=== PATIENT | male | born 1935 | race Caucasian/White ===

== ENCOUNTER 2016-06-08 06:53 | Inpatient (IN) | payer MEDICARE, OTHER ==
[2016-06-08 07:22] LABS: VENOUS BLOOD BASE EXCESS -2.1 mmol/L; VENOUS BLOOD HCO3 24.4 mmol/L (20-32); VENOUS BLOOD PCO2 48.8 mmHg (35-63); VENOUS BLOOD PH 7.32 (7.30-7.42)
[2016-06-08 07:29] LABS: HEMATOCRIT 37.5 % (37.9-51.0); HEMOGLOBIN 12.4 g/dL (13.5-17.0); HGB HCT DIFFERENCE -0.3; MEAN CORPUSCULAR HEMOGLOBIN 29.3 pg (27.0-33.4); MEAN CORPUSCULAR HGB CONC 33.1 g/dL (32.0-36.0); MEAN CORPUSCULAR VOLUME 89 fl (80-97); RED BLOOD COUNT 4.23 10^6/uL (4.35-5.55); RED CELL DISTRIBUTION WIDTH 14.4 % (11.5-14.0); WHITE BLOOD COUNT 15.6 10^3/uL (4.0-10.5)
[2016-06-08] MEDS: NORMAL SALINE 1000 ML 1,000 ML IV PRN ×4 (07:32→20:10)
[2016-06-08 07:44] LABS: ALANINE AMINOTRANSFERASE 32 U/L (21-72); ALBUMIN 3.2 g/dL (3.5-5.0); ALKALINE PHOSPHATASE 123 U/L (38-126); ANION GAP 12 (5-19); ASPARTATE AMINO TRANSFERASE 43 U/L (17-59); BILIRUBIN,TOTAL 0.9 mg/dL (0.2-1.3); BLOOD UREA NITROGEN 39 mg/dL (7-20); CALCIUM 8.6 mg/dL (8.4-10.2); CARBON DIOXIDE 29 mmol/L (22-30); CHLORIDE 102 mmol/L (98-107); CREATININE RESULT 1.12 mg/dL (0.52-1.25); GLUCOSE 142 mg/dL (75-110); MAGNESIUM 1.8 mg/dL (1.6-2.3); POTASSIUM 3.6 mmol/L (3.6-5.0); SODIUM 142.7 mmol/L (137-145); TOTAL PROTEIN 6.6 g/dL (6.3-8.2)
[2016-06-08] MEDS ORDERED: LEVOFLOXACIN 500 MG/D5W RTU 100 ML IV ONE (07:45)
[2016-06-08 07:48] LABS: BAND NEUTROPHILS % (MANUAL) 4 % (3-5); BASOPHILS % (MANUAL) 0 % (0-2); EOSINOPHILS % (MANUAL) 2 % (0-6); LYMPHOCYTES % (MANUAL) 2 % (13-45); TOTAL CELLS COUNTED 100
[2016-06-08 07:49] LABS: RBC MORPHOLOGY COMMENT NORMO-CYTIC/CHROMIC; TOXIC GRANULATION SLIGHT
[2016-06-08 07:50] LABS: PARTIAL THROMBOPLASTIN TIME 33.4 SEC (23.5-35.8); PROTHROMBIN TIME 14.9 SEC (11.4-15.4)
[2016-06-08 08:01] LABS: APPEARANCE,URINE HAZY; BILIRUBIN,URINE NEGATIVE (NEGATIVE); GLUCOSE, URINE NEGATIVE (NEGATIVE); KETONES,URINE NEGATIVE (NEGATIVE); LEUKOCYTE ESTERASE,URINE NEGATIVE (NEGATIVE); NITRITE,URINE NEGATIVE (NEGATIVE); PROTEIN,URINE 30 mg/dL (NEGATIVE); UROBILINOGEN,URINE NEGATIVE mg/dL (<2.0)
[2016-06-08 08:02] LABS: URINE SPECIFIC GRAVITY 1.017
--- NOTE | 2016-06-08 08:47 | ER Document Report ---
ED General - General Chief Complaint: Breathing Difficulty Stated Complaint: DIFFICULTY BREATHING - Related Data Allergies/Adverse Reactions: No Known Allergies Allergy (Unverified 06/08/16 07:34) Physical Exam - Vital signs Vitals: Resp Pulse Ox 27 H 97 06/08/16 06:59 06/08/16 06:59 Course - Vital Signs Vital signs: Temp Pulse Resp BP Pulse Ox 33 H 92/58 L 96 06/08/16 07:30 06/08/16 07:30 06/08/16 07:30 - Laboratory Result Diagrams: 06/08/16 06:59 06/08/16 06:59 Laboratory results interpreted by me: 06/08/16 06/08/16 06/08/16 06:59 06:59 07:13 WBC 15.6 H RBC 4.23 L Hgb 12.4 L Hct 37.5 L RDW 14.4 H Plt Count 136 L Seg Neuts % (Manual) 82 H Lymphocytes % (Manual) 2 L Abs Neuts (Manual) 13.4 H Abs Lymphs (Manual) 0.3 L Abs Monocytes (Manual) 1.6 H BUN 39 H Glucose 142 H Albumin 3.2 L Urine Protein 30 H Urine Ascorbic Acid 40 H
[2016-06-08] MEDS ORDERED: NORMAL SALINE 1000 ML 1,000 ML IV ONE (08:52)
--- NOTE | 2016-06-08 08:53 | ER Document Report ---
ED General - General Chief Complaint: Breathing Difficulty Stated Complaint: DIFFICULTY BREATHING - HPI Patient complains to provider of: fever respiratory distress Notes: Patient coming in via EMS after found to have fever and restarted stress. Patient was found to have a oxygen desaturation a proximal 70 upon their arrival. Patient was transitioned to a nonrebreather transported. Upon EMS arrival patient GCS of 13 however most of the initial history of present illness is obtained by EMS. Patient has had cough the last 4 days she recently moved to the area from [place] in February. Has a history of COPD/emphysema. Patient did have fever was given Tylenol. Patient was transitioned from nonrebreather to BiPAP. - Related Data Allergies/Adverse Reactions: No Known Allergies Allergy (Unverified 06/08/16 07:34) Home Medications: Current Home Medications Atorvastatin Calcium [Lipitor 40 mg Tablet] 40 mg PO QHS 06/08/16 [History] Budesonide [Uceris] 9 mg PO DAILY 06/08/16 [History] Clonazepam [Klonopin] 0.5 mg PO Q8 06/08/16 [History] Diphenoxylate HCl/Atropine [Diphenoxylate-Atrop 2.5-0.025] 1 each PO QIDP PRN [History] Ergocalciferol (Vitamin D2) [Vitamin D2] 50,000 unit PO [id number] 06/08/16 [ History] Oxycodone HCl/Acetaminophen [Oxycodone-Acetaminophen 5-325] 1 each PO Q6 [History] Past Medical History - Social History Smoking Status: Unknown if Ever Smoked Family History: Reviewed & Not Pertinent Review of Systems - Review of Systems Constitutional: No symptoms reported EENT: No symptoms reported Cardiovascular: No symptoms reported Respiratory: Short of breath Gastrointestinal: No symptoms reported Genitourinary: No symptoms reported Male Genitourinary: No symptoms reported Musculoskeletal: No symptoms reported Skin: No symptoms reported Hematologic/Lymphatic: No symptoms reported Neurological/Psychological: No symptoms reported -: Yes All other systems reviewed and negative Physical Exam - Vital signs Vitals: Resp Pulse Ox 27 H 97 06/08/16 06:59 06/08/16 06:59 Interpretation: Hypotensive, Tachycardic, Febrile - General General appearance: Alert, Other - Cachectic In distress: Moderate - HEENT Head: Normocephalic, Atraumatic Eyes: Normal Pupils: PERRL - Respiratory Respiratory status: Respiratory distress Chest status: Nontender Breath sounds: Rhonchi, Wheezing Chest palpation: Normal - Cardiovascular Rhythm: Regular, Tachycardia Heart sounds: Normal auscultation Murmur: No - Abdominal Inspection: Normal Distension: No distension Bowel sounds: Normal Tenderness: Nontender Organomegaly: No organomegaly - Back Back: Normal, Nontender - Extremities General upper extremity: Normal inspection, Nontender, Normal color, Normal ROM , Normal temperature General lower extremity: Normal inspection, Nontender, Normal color, Normal ROM , Normal temperature, Normal weight bearing. No: Enzo's sign - Neurological Neuro grossly intact: Yes Cognition: Normal Orientation: AAOx4 Jackson Coma Scale Eye Opening: To Voice Antonio Coma Scale Verbal: Oriented Jackson Coma Scale Motor: Localizes to Pain Jackson Coma Scale Total: 13 Speech: Normal Motor strength normal: LUE, RUE, LLE, RLE Sensory: Normal - Psychological Associated symptoms: Normal affect, Normal mood - Skin Skin Temperature: Warm Skin Moisture: Dry Skin Color: Normal Course - Re-evaluation Re-evalutation: 06/08/16 15:10 After timeout BiPAP patient's mentation improved family at bedside patient has a history emphysema otherwise no other information was gathered. Patient was given IV fluids started on Levaquin. Patient's chest x-ray showed mild a slurred pneumonia. Patient's case was referred to the hospitalist. Patient did surgeon improve our during his stay here in ER waiting for a bed assignment did become hypotensive again did place a central line in to aid in the patient' s care with hospitalist. Otherwise patient admitted to the ICU - Vital Signs Vital signs: Temp Pulse Resp BP Pulse Ox 101 F H 25 H 82/59 L 96 06/08/16 10:05 06/08/16 14:30 06/08/16 14:30 06/08/16 14:29 - Laboratory Result Diagrams: 06/08/16 06:59 06/08/16 06:59 Laboratory results interpreted by me: 06/08/16 06/08/16 06/08/16 06:59 06:59 06:59 WBC 15.6 H RBC 4.23 L Hgb 12.4 L Hct 37.5 L RDW 14.4 H Plt Count 136 L Seg Neuts % (Manual) 82 H Lymphocytes % (Manual) 2 L Abs Neuts (Manual) 13.4 H Abs Lymphs (Manual) 0.3 L Abs Monocytes (Manual) 1.6 H BUN 39 H Glucose 142 H NT-Pro-B Natriuret Pep 728 H Albumin 3.2 L Urine Protein Urine Ascorbic Acid 06/08/16 07:13 WBC RBC Hgb Hct RDW Plt Count Seg Neuts % (Manual) Lymphocytes % (Manual) Abs Neuts (Manual) Abs Lymphs (Manual) Abs Monocytes (Manual) BUN Glucose NT-Pro-B Natriuret Pep Albumin Urine Protein 30 H Urine Ascorbic Acid 40 H Procedures - Central Line Right Internal jugular Consent obtained: Yes Central line pre-insertion: Sterile PPE donned, Chloraprep applied, Sterile drapes applied Central line lumen type: Triple Anesthetic type: 1% Lidocaine mL's of anesthesia: 3 Ultrasound guided: Yes CM at insertion site: 20 Line secured with sutures: Yes Central line post-insertion: Blood return from lumens, Biopatch applied, Sutured , Sterile dressing applied, Position confirmed w/ CXR Number of attempts: 1 Complications: No Critical Care Note - Critical Care Note Total time excluding time spent on procedures (mins): 40 Comments: Multiple evaluation from stable vital signs patient with sepsis requiring BiPAP Discharge - Discharge Clinical Impression: Tobacco dependence, Lung nodule, solitary, Acute respiratory failure with hypoxia Sepsis Qualifiers: Sepsis type: sepsis due to unspecified organism Qualified Code(s): A41.9 - Sepsis, unspecified organism Pneumonia Qualifiers: Pneumonia type: due to unspecified organism Laterality: bilateral Lung location : lower lobe of lung Qualified Code(s): J18.9 - Pneumonia, unspecified organism COPD (chronic obstructive pulmonary disease) Qualifiers: COPD type: COPD with acute exacerbation Qualified Code(s): J44.1 - Chronic obstructive pulmonary disease with (acute) exacerbation Condition: Fair Disposition: ADMITTED INPATIENT Admitting Provider: [facility] Unit Admitted: ICU
[2016-06-08] MEDS ORDERED: IPRATROPIUM/ALBUTEROL 0.5-2.5 MG/3 ML AMPUL NEB PRN (09:29)
--- NOTE | 2016-06-08 10:09 | PDOC H&P ---
History of Present Illness Admission Date/PCP: CASEY AGUILAR MD Patient complains of: Shortness of breath and weakness History of Present Illness: VIKRAM BARRIENTOS is a 80 year old male who is new to the area having moved from [place] and yet to establish with primary care provider, carries a history of COPD and lung nodule, presents to the emergency department from home with a 5 day history of progressive shortness of breath. He states it started on Thursday with cough resulting in left lower and abdominal wall chest pain described as sharp, stabbing, intermittent and worsened with paroxysms of cough , radiating into the shoulders and down his right arm exacerbating his cervical spine disease, without alleviating factors, and no associated symptoms of palpitations, orthopnea, PND, syncope or presyncope. He also complains of generalized weakness, generalized myalgias, generalized arthralgias, fevers at home with associated diaphoresis and night sweats, chills/rigors. He denies nausea, vomiting, diarrhea, sick contacts, recent travel, exposure to TB, recent hospitalization. He reports a long history of smoking at least a pack per day for most of his life and a diagnosis of COPD with home nebulizers but he is not O2 or steroid dependent yet. 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 He is unsure of a pulmonary fibrosis diagnosis. He also carries a history of a 2-1/2 cm left upper lobe lung nodule for the last 20 years status monitored with annual imaging and has not changed during that time. He carries a diagnosis of colon cancer status post excision with end-to-end anastomosis, no ostomy, status post chemotherapy and radiation therapy, last colonoscopy in 2007 and he was declared cancer free. Evaluation in the emergency department shows a bibasilar pneumonia, leukocytosis , temperature documented at 102 with a room air sat of 70% now on BiPAP therapy and we were asked to admit the patient for further evaluation and management. He states he is up-to-date with his pneumonia and influenza vaccine, and he screened negative for influenza in the ER. Past Medical History Cardiac Medical History: Reports: None Pulmonary Medical History: Reports: Chronic Obstructive Pulmonary Disease (COPD ) - He has been hospitalized for pneumonia in the past but never required intub Neurological Medical History: Reports: None Endocrine Medical History: Reports: None Malignancy Medical History: Reports: Colorectal Cancer GI Medical History: Reports: None Hematology: Reports: None Infectious Medical History: Denies: Clostridium Difficile, Methicillin-Resistant Staph Aureus, Vancomycin -Resistant Enterococci Past Surgical History Past Surgical History: Reports: Orthopedic Surgery - Multiple orthopedic surgeries including repair of a fractured right arm,, Other - Partial colectomy with end-to-end anastomosis; also C-spine fusion Social History Information Source: Patient Lives with: Family Smoking Status: Current Every Day Smoker Cigarettes Packs Per Day: 1 Frequency of Alcohol Use: Rare Hx Recreational Drug Use: No Hx Prescription Drug Abuse: No - Advance Directive Resuscitation Status: Full Code Family History Family History: CAD, CVA Parental Family History Reviewed: Yes Children Family History Reviewed: Yes Sibling(s) Family History Reviewed.: Yes Medication/Allergy Allergies/Adverse Reactions: No Known Allergies Allergy (Unverified 06/08/16 07:34) Review of Systems Constitutional: PRESENT: anorexia, chills, fatigue, fever(s), night sweats, weakness. ABSENT: headache(s), weight gain, weight loss Eyes: ABSENT: visual disturbances Ears: ABSENT: hearing changes Cardiovascular: PRESENT: as per HPI, chest pain. ABSENT: dyspnea on exertion, edema, orthropnea, palpitations Respiratory: PRESENT: cough, dyspnea, sputum - Clear. ABSENT: hemoptysis Gastrointestinal: PRESENT: abdominal pain - With cough. ABSENT: constipation, diarrhea, hematemesis, hematochezia, nausea, vomiting Genitourinary: ABSENT: dysuria, hematuria Musculoskeletal: ABSENT: joint swelling Integumentary: ABSENT: rash, wounds Neurological: ABSENT: abnormal gait, abnormal speech, confusion, dizziness, focal weakness, numbness, syncope Psychiatric: ABSENT: anxiety, depression Endocrine: ABSENT: cold intolerance, heat intolerance, polydipsia, polyuria Hematologic/Lymphatic: ABSENT: easy bleeding, easy bruising Physical Exam Vital Signs: Temp Pulse Resp BP Pulse Ox 33 H 92/58 L 96 06/08/16 07:30 06/08/16 07:30 06/08/16 07:30 PHYSICAL EXAM GENERAL: NAD, age-appropriate; well developed, well nourished; no obese; alert and oriented to person, place, time, situation, BiPAP in place HEENT: normocephalic, atraumatic; EOMI, PERRLA, no conjunctival injection, no scleral icterus; oral mucosa moist; neck supple, no LAD, normal ROM RESPIRATORY: no accessory muscle use, no increased WOB, good air entry bilaterally; no wheezes, rales, rhonchi; no inspiratory crackles CARDIO: Prominent venous pulsations but no true JVD; RRR; soft 2/6 systolic murmur heard best at the apex; no tachycardia, heart rate in the 80s; mild tenderness to palpation across the left lower ribs and sternum VASCULAR: no carotid bruit; no abdominal bruit; no pallor; 2+ radial, DP pulse ; normal capillary refill GI: soft; nondistended; normal bowel sounds; no rebound, rigidity, guarding; nontender NEURO: normal patella reflexes; normal sensation; normal motor function; no dysarthria; no nystagmus; tongue protrudes midline; MSK: 4/5 strength; normal ROM hips; ambulatory without assistance; no tenderness EXTREMITIES: no calf tender; no palpable cords in calf; mild clubbing, no cyanosis or pedal edema PSYCH: normal affect, normal mood SKIN: warm; moist; no petechiae; no telengectasias; no jaundice; no rash Results Laboratory Results: 06/08/16 06:59 06/08/16 06:59 06/08/16 06/08/16 06/08/16 06:59 06:59 06:59 WBC 15.6 H RBC 4.23 L Hgb 12.4 L Hct 37.5 L MCV 89 MCH 29.3 MCHC 33.1 RDW 14.4 H Plt Count 136 L Seg Neutrophils % Not Reportable Lymphocytes % Not Reportable Monocytes % Not Reportable Eosinophils % Not Reportable Basophils % Not Reportable Absolute Neutrophils Not Reportable Absolute Lymphocytes Not Reportable Absolute Monocytes Not Reportable Absolute Eosinophils Not Reportable Absolute Basophils Not Reportable VBG pH VBG pCO2 VBG HCO3 VBG Base Excess Sodium 142.7 Potassium 3.6 Chloride 102 Carbon Dioxide 29 Anion Gap 12 BUN 39 H Creatinine 1.12 Est GFR ( Amer) > 60 Est GFR (Non-Af Amer) > 60 Glucose 142 H Lactic Acid 1.7 Calcium 8.6 Magnesium 1.8 Total Bilirubin 0.9 AST 43 ALT 32 Alkaline Phosphatase 123 Total Protein 6.6 Albumin 3.2 L Lipase Urine Color Urine Appearance Urine pH Ur Specific [place] Urine Protein Urine Glucose (UA) Urine Ketones Urine Blood Urine Nitrite Ur Leukocyte Esterase Urine WBC (Auto) Urine RBC (Auto) 06/08/16 06/08/16 06/08/16 06:59 06:59 07:13 WBC RBC Hgb Hct MCV MCH MCHC RDW Plt Count Seg Neutrophils % Lymphocytes % Monocytes % Eosinophils % Basophils % Absolute Neutrophils Absolute Lymphocytes Absolute Monocytes Absolute Eosinophils Absolute Basophils VBG pH 7.32 VBG pCO2 48.8 VBG HCO3 24.4 VBG Base Excess -2.1 Sodium Potassium Chloride Carbon Dioxide Anion Gap BUN Creatinine Est GFR ( Amer) Est GFR (Non-Af Amer) Glucose Lactic Acid Calcium Magnesium Total Bilirubin AST ALT Alkaline Phosphatase Total Protein Albumin Lipase 63.6 Urine Color YELLOW Urine Appearance HAZY Urine pH 5.0 Ur Specific [place] 1.017 Urine Protein 30 H Urine Glucose (UA) NEGATIVE Urine Ketones NEGATIVE Urine Blood NEGATIVE Urine Nitrite NEGATIVE Ur Leukocyte Esterase NEGATIVE Urine WBC (Auto) 4 Urine RBC (Auto) 2 06/08/16 06:59 Troponin I 0.151 Labs reviewed, troponin upper limit of normal, urinalysis unremarkable, CBC shows a leukocytosis, mild normocytic normochromic anemia, lipase normal, chemistries unremarkable though his BUN and creatinine are upper limit of normal his GFR is greater than 60 Impressions: Chest X-Ray 06/08/16 06:57 IMPRESSION: There is some interstitial opacities noted at both lung bases which could represent underlying chronic fibrotic changes versus superimposed infiltrate. Correlate clinically. There is a 2.6 cm nodular lesion in the left lung concerning for possible intraparenchymal lesion. 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 Assessment & Plan - Diagnosis (1) Sepsis Qualifiers: Sepsis type: sepsis due to unspecified organism Qualified Code(s): A41.9 - Sepsis, unspecified organism Is this a current diagnosis for this admission?: YesPlan: Admit the patient for aggressive fluid resuscitation. He'll need monitoring in the ICU due to the severity of his illness, hypovolemic and septic shock at grave risk further hemodynamic and respiratory compromise. If he fails BiPAP therapy he will need to be intubated and placed on mechanical ventilation. (2) Pneumonia Qualifiers: Pneumonia type: due to unspecified organism Laterality: bilateral Lung location: lower lobe of lung Qualified Code(s): J18.9 - Pneumonia, unspecified organism Is this a current diagnosis for this admission?: YesPlan: His fixed lung disease puts him at risk for gram-negative organisms, we'll start with Rocephin and azithromycin and broaden his antibiotic coverage if he decompensates. He has no known risk factors for pseudomonas or MRSA otherwise. He has no risk factors for fungal infection. Continue BiPAP therapy, supplemental O2 titrated to patient comfort, incentive spirometer when weaned off the BiPAP, scheduled and as needed nebulizers. Follow up on blood cultures sent from the ER, and sputum culture. (3) Acute respiratory failure with hypoxia Is this a current diagnosis for this admission?: YesPlan: Admitted to the ICU for ongoing BiPAP therapy with aggressive pulmonary toilet. We do not have pulmonary or critical care coverage available to us for the first she will future due to illness. If his condition were to decompensate and he requires intubation and mechanical ventilation, consideration for transfer to a tertiary care center with the services available. (4) COPD (chronic obstructive pulmonary disease) Qualifiers: COPD type: COPD with acute exacerbation Qualified Code(s): J44.1 - Chronic obstructive pulmonary disease with (acute) exacerbation Is this a current diagnosis for this admission?: YesPlan: Treatment as above, start with nebulizer therapy and add systemic steroids. (5) Atypical chest pain Is this a current diagnosis for this admission?: YesPlan: His pain is reproducible with cough and deep breath so I suspect is more pleuritic in nature and related to the small pleural effusions associated with his bilateral pneumonia. That being said he has enough risk factors for heart disease that we should continue to trend his cardiac enzymes for 2 more sets and will check an echocardiogram looking for wall motion abnormalities, valvular abnormalities, pulmonary hypertension and to establish his EF given the hypotension on presentation. Empiric aspirin therapy. Check lipid panel in the morning. Consult cardiology for any decline in his condition or evidence of ischemia. (6) Anemia Qualifiers: Anemia type: unspecified type Qualified Code(s): D64.9 - Anemia, unspecified Is this a current diagnosis for this admission?: YesPlan: Likely related to chronic disease especially in light of his history of colon cancer. We'll trend his H&H as it will likely drop due to dilutional effect. There is no obvious sign of blood loss. Place on H2 sekou IV twice a day. (7) Colon cancer Qualifiers: Colon location: unspecified part of colon Qualified Code(s): C18.9 - Malignant neoplasm of colon, unspecified Is this a current diagnosis for this admission?: Yes (8) Lung nodule, solitary Is this a current diagnosis for this admission?: Yes (9) Tobacco dependence Is this a current diagnosis for this admission?: YesPlan: Once the patient is a bit more stable will genetic counselor regarding tobacco cessation. In the meantime place on Nicotine replacement. - Time Time Spent: Greater than 70 Minutes Medications reviewed and adjusted accordingly: Yes - Inpatient Certification Medical Necessity: Significant Comorbidiites Make Outpatient Treatment Too Risky , Need For IV Fluids, Need For Continuous Telemetry Monitoring, Need for Nebulizer Therapy and Monitoring of Response, Need for IV Antibiotics, Risk of Complication if Not Cared For in Hospital - Plan Summary Plan Summary: H2 sekou for GI prophylaxis, Lovenox for DVT prophylaxis.
--- NOTE | 2016-06-08 11:02 | EKG REPORT ---
SEVERITY:- DEFECTIVE ECG - RIGHT AND LEFT ARM LEADS REVERSED, PLEASE REPEAT ECG : Confirmed by: Twan Patino MD 08-Jun-2016 11:01:40
[2016-06-08] MEDS: RINGERS SOLUTION,LACTATED 1,000 ML IV PRN ×2 (11:09→12:52)
[2016-06-08] MEDS ORDERED: DEXTROSE 5%-WATER 250 ML with NOREPINEPHRINE BITARTRATE 4 MG IV PRN ×2 (12:11)
[2016-06-08] MEDS ORDERED: NOREPINEPHRINE BITARTRATE INJ/PF 4 MG/4 ML SDV IV ONE (13:48)
[2016-06-08] MEDS ORDERED: ENOXAPARIN SODIUM INJ 40 MG/0.4 ML DISP.SYRIN SUBCUT ONE (15:30)
[2016-06-08] MEDS ORDERED: NICOTINE 21 MG/24 HR PATCH.TD24 TD ONE (15:30)
[2016-06-08] MEDS: FAMOTIDINE INJ/PF 20 MG/2 ML SDV IV SCH ×2 (15:45→23:54)
[2016-06-08] MEDS: GUAIFENESIN 600 MG TABLET.SA PO SCH ×2 (15:45→23:54)
[2016-06-08] MEDS: CEFTRIAXONE 1 GM/D5W RTU 1 GM/50 ML RTUPB IV SCH (15:46)
[2016-06-08] MEDS: ACETAMINOPHEN 325 MG TABLET PO PRN (15:46)
[2016-06-08] MEDS ORDERED: GUAIFENESIN 600 MG TABLET.SA PO ONE (16:15)
[2016-06-08] MEDS ORDERED: ASPIRIN 81 MG TABLET, CHEWABLE PO ONE (16:15)
[2016-06-08] MEDS ORDERED: FAMOTIDINE INJ/PF 20 MG/2 ML SDV IV ONE (16:15)
[2016-06-08] MEDS: IPRATROPIUM/ALBUTEROL 0.5-2.5 MG/3 ML AMPUL NEB SCH ×2 (16:17→23:41)
[2016-06-08] MEDS: HYDROCORTISONE SOD SUCCINATE INJ/PF 100 MG/2 ML SDV IV SCH (23:53)
[2016-06-09] MEDS: HYDROCORTISONE SOD SUCCINATE INJ/PF 100 MG/2 ML SDV IV SCH ×3 (06:30→21:21)
[2016-06-09 07:00] LABS: HEMATOCRIT 33.1 % (37.9-51.0); HEMOGLOBIN 10.7 g/dL (13.5-17.0); MEAN CORPUSCULAR HEMOGLOBIN 29.1 pg (27.0-33.4); MEAN CORPUSCULAR HGB CONC 32.4 g/dL (32.0-36.0); MEAN CORPUSCULAR VOLUME 90 fl (80-97); RED BLOOD COUNT 3.68 10^6/uL (4.35-5.55); RED CELL DISTRIBUTION WIDTH 14.6 % (11.5-14.0)
[2016-06-09 07:01] LABS: ANION GAP 6 (5-19); BLOOD UREA NITROGEN 20 mg/dL (7-20); CALCIUM 7.6 mg/dL (8.4-10.2); CARBON DIOXIDE 26 mmol/L (22-30); CHLORIDE 109 mmol/L (98-107); CHOLESTEROL 55.95 mg/dL (0-200); CREATININE RESULT 0.73 mg/dL (0.52-1.25); Direct HDL 17 mg/dL (>40); GLUCOSE 150 mg/dL (75-110); TRIGLYCERIDES 66 mg/dL (<150)
[2016-06-09 07:20] LABS: DIRECT LDL < 30 mg/dL (<100)
[2016-06-09 07:43] LABS: BASOPHILS % (MANUAL) 0 % (0-2); EOSINOPHILS % (MANUAL) 0 % (0-6); LYMPHOCYTES % (MANUAL) 2 % (13-45); TOTAL CELLS COUNTED 100
[2016-06-09 07:46] LABS: BURR CELLS SLIGHT; OVALOCYTES SLIGHT; POIKILOCYTOSIS SLIGHT; TOXIC GRANULATION 1+; TOXIC VACUOLATION PRESENT
[2016-06-09] MEDS: IPRATROPIUM/ALBUTEROL 0.5-2.5 MG/3 ML AMPUL NEB SCH ×2 (08:51→15:31)
[2016-06-09] MEDS: GUAIFENESIN 600 MG TABLET.SA PO SCH ×2 (10:29→21:22)
[2016-06-09] MEDS: ASPIRIN 81 MG TABLET, CHEWABLE PO SCH (10:29)
[2016-06-09] MEDS: FAMOTIDINE INJ/PF 20 MG/2 ML SDV IV SCH ×2 (10:32→21:22)
[2016-06-09] MEDS: ENOXAPARIN SODIUM INJ 40 MG/0.4 ML DISP.SYRIN SUBCUT SCH (10:33)
[2016-06-09] MEDS: AZITHROMYCIN 500 MG in DEXTROSE 5%-WATER 250 ML IV SCH ×2 (10:33→17:54)
[2016-06-09] MEDS ORDERED: MAGNESIUM HYDROXIDE SUSP 30 ML UDCUP PO PRN (11:38)
--- NOTE | 2016-06-09 11:38 | PDOC PROGRESS REPORT ---
Subjective Progress Note for:: 06/09/16 Subjective:: Reason for visit: Follow-up pneumonia, acute hypoxic respiratory failure, septic shock Hospital course: VIKRAM BARRIENTOS is a 80 year old male who is new to the area having moved from [place] and yet to establish with primary care provider, carries a history of COPD and lung nodule, presents to the emergency department from home with a 5 day history of progressive shortness of breath. 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 He also complains of generalized weakness, generalized myalgias, generalized arthralgias, fevers at home with associated diaphoresis and night sweats, chills /rigors. He denies nausea, vomiting, diarrhea, sick contacts, recent travel, exposure to TB, recent hospitalization. He reports a long history of smoking at least a pack per day for most of his life and a diagnosis of COPD with home nebulizers but he is not O2 or steroid dependent yet. 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 He is unsure of a pulmonary fibrosis diagnosis. He also carries a history of a 2-1/2 cm left upper lobe lung nodule for the last 20 years status monitored with annual imaging and has not changed during that time. He carries a diagnosis of colon cancer status post excision with end-to-end anastomosis, no ostomy, status post chemotherapy and radiation therapy, last colonoscopy in 2007 and he was declared cancer free. Evaluation in the emergency department shows a bibasilar pneumonia, leukocytosis , temperature documented at 102 with a room air sat of 70% now on BiPAP therapy and we were asked to admit the patient for further evaluation and management. He states he is up-to-date with his pneumonia and influenza vaccine, and he screened negative for influenza in the ER. He received nearly 6 L of IV fluid and resuscitative efforts with good improvement in his systolic blood pressures, should be noted his mean arterial pressure never dropped below 65 and he was able to avoid vasopressors. Subjective: This morning he appears at times of exertion with more respiratory distress and has a persistent heaviness in his chest, but he denies chest pain, palpitations, headache, dizziness, nausea, vomiting. He reports cough of thick phlegm difficult clear. He rests easier on the BiPAP, breathing easier as well. ROS: per HPI plus a total of 10 systems reviewed, pertinent positives and negatives noted above, remaining systems negative. Physical Exam Vital Signs: Temp Pulse Resp BP Pulse Ox 98.1 F 95 33 H 102/49 L 100 06/09/16 08:00 06/09/16 08:00 06/09/16 08:00 06/09/16 08:00 06/09/16 08:00 Intake & Output 06/08/16 06/09/16 06/10/16 06:59 06:59 06:59 Output Total 450 250 Balance -450 -250 Weight 88.451 kg PHYSICAL EXAM GENERAL: NAD, age-appropriate; well developed, well nourished; no obese; alert and oriented to person, place, situation, tolerating BiPAP in place with settings of 12/6 and an FiO2 40% HEENT: normocephalic, atraumatic; EOMI, PERRLA, no conjunctival injection, no scleral icterus; oral mucosa moist; neck supple, no LAD, normal ROM RESPIRATORY: no accessory muscle use, mild increased WOB improved with BiPAP, good air entry bilaterally; no wheezes, rhonchi; rales at the bases and inspiratory crackles to the apices CARDIO: Prominent venous pulsations but no true JVD persist; RRR; harsh 2/6 systolic murmur heard best at the apex; borderline tachycardia, heart rate in the 80s; mild tenderness to palpation across the left lower ribs and sternum persists VASCULAR: no carotid bruit; no abdominal bruit; no pallor; 2+ radial, DP pulse ; normal capillary refill GI: soft; nondistended; normal bowel sounds; no rebound, rigidity, guarding; nontender NEURO: normal patella reflexes; normal sensation; normal motor function; no dysarthria; no nystagmus; tongue protrudes midline; MSK: 4/5 strength; normal ROM hips; ambulatory without assistance; no tenderness EXTREMITIES: no calf tender; no palpable cords in calf; mild clubbing, no cyanosis or pedal edema PSYCH: normal affect, normal mood SKIN: Color improved, not as dusky and pale, warm; moist; no petechiae; no telengectasias; no jaundice; no rash Results Laboratory Results: 06/09/16 06:28 06/09/16 06:28 06/09/16 06/09/16 06:28 06:28 WBC 8.0 RBC 3.68 L Hgb 10.7 L Hct 33.1 L MCV 90 MCH 29.1 MCHC 32.4 RDW 14.6 H Plt Count 95 L Seg Neutrophils % Not Reportable Lymphocytes % Not Reportable Monocytes % Not Reportable Eosinophils % Not Reportable Basophils % Not Reportable Absolute Neutrophils Not Reportable Absolute Lymphocytes Not Reportable Absolute Monocytes Not Reportable Absolute Eosinophils Not Reportable Absolute Basophils Not Reportable Sodium 141.0 Potassium 4.0 Chloride 109 H Carbon Dioxide 26 Anion Gap 6 BUN 20 Creatinine 0.73 Est GFR ( Amer) > 60 Est GFR (Non-Af Amer) > 60 Glucose 150 H Calcium 7.6 L Triglycerides 66 Cholesterol 55.95 LDL Cholesterol Direct < 30 VLDL Cholesterol 13.0 HDL Cholesterol 17 L 06/08/16 06/08/16 06/09/16 14:00 18:32 06:28 Troponin I 0.103 0.101 NT-Pro-B Natriuret Pep 1330 H Labs reviewed, CBC shows a delusional anemia as suspected and resolution of leukocytosis, pro BNP is climbing, electrolytes are unremarkable Impressions: Chest X-Ray 06/08/16 06:57 IMPRESSION: There is some interstitial opacities noted at both lung bases which could represent underlying chronic fibrotic changes versus superimposed infiltrate. Correlate clinically. There is a 2.6 cm nodular lesion in the left lung concerning for possible intraparenchymal lesion. Status: Imported from PACS Assessment & Plan - Diagnosis (1) Sepsis Qualifiers: Sepsis type: sepsis due to unspecified organism Qualified Code(s): A41.9 - Sepsis, unspecified organism Is this a current diagnosis for this admission?: YesPlan: Evidenced by leukocytosis, tachypnea and a known source. He'll need continued monitoring due to the severity of his illness, hypovolemic and septic shock at grave risk further hemodynamic and respiratory compromise. If he fails BiPAP therapy he will need to be intubated and placed on mechanical ventilation. Continue stress dose steroids for a full 48 hours from admission then as needed. Hold IV fluids due to significant third spacing including pulmonary edema, allowing his body to mobilize fluid and independent of pharmaceutical intervention if possible. (2) Pneumonia Qualifiers: Pneumonia type: due to unspecified organism Laterality: bilateral Lung location: lower lobe of lung Qualified Code(s): J18.9 - Pneumonia, unspecified organism Is this a current diagnosis for this admission?: YesPlan: Continue Rocephin and Zithromax and broaden his antibiotic coverage if he decompensates.. His fixed lung disease puts him at risk for gram-negative organisms. He has no known risk factors for pseudomonas or MRSA otherwise. He has no risk factors for fungal infection. Continue as needed BiPAP therapy, supplemental O2 titrated to patient comfort, incentive spirometer when off the BiPAP, scheduled and as needed nebulizers. blood cultures sent from the ER showed no growth in 24 hours, and sputum culture still pending as he's had difficulty expectorating and adequate sample. (3) Acute respiratory failure with hypoxia Is this a current diagnosis for this admission?: YesPlan: Unchanged, continue BiPAP therapy with aggressive pulmonary toilet. We do not have pulmonary or critical care coverage available to us for the first she will future due to illness. If his condition were to decompensate and he requires intubation and mechanical ventilation, consideration for transfer to a tertiary care center with the services available. (4) COPD (chronic obstructive pulmonary disease) Qualifiers: COPD type: COPD with acute exacerbation Qualified Code(s): J44.1 - Chronic obstructive pulmonary disease with (acute) exacerbation Is this a current diagnosis for this admission?: YesPlan: Treatment as above with nebulizer therapy and added systemic steroids. (5) Atypical chest pain Is this a current diagnosis for this admission?: YesPlan: His pain is reproducible with cough and deep breath so I suspect is more pleuritic in nature and related to the small pleural effusions associated with his bilateral pneumonia. That being said he has enough risk factors for heart disease that we trended his cardiac enzymes with 3 negative sets, awaiting echocardiogram results looking for wall motion abnormalities, valvular abnormalities, pulmonary hypertension and to establish his EF given the hypotension on presentation. Empiric aspirin therapy. lipid panel is unusually low with triglycerides of only 66, total cholesterol of only 56, LDL undetectable at less than 30, and an HDL of only 17. Consult cardiology for any decline in his condition or evidence of ischemia. (6) Anemia Qualifiers: Anemia type: unspecified type Qualified Code(s): D64.9 - Anemia, unspecified Is this a current diagnosis for this admission?: YesPlan: Likely related to chronic disease especially in light of his history of colon cancer. trend his H&H after an expected drop due to dilutional effect. There is no obvious sign of blood loss. Continue H2 sekou IV twice a day. (7) Colon cancer Qualifiers: Colon location: unspecified part of colon Qualified Code(s): C18.9 - Malignant neoplasm of colon, unspecified Is this a current diagnosis for this admission?: Yes (8) Lung nodule, solitary Is this a current diagnosis for this admission?: Yes (9) Tobacco dependence Is this a current diagnosis for this admission?: Yes - Time Time Spent with patient: 25-34 minutes Anticipated discharge: Home with Homehealth - We'll likely need at least outpatient physical therapy if not placement for short course of rehabilitation Within: within 72 hours - Plan Summary Plan Summary: Continue H2 sekou for GI reflexes, Lovenox for DVT prophylaxis, lactobacillus for C. difficile prophylaxis.
--- NOTE | 2016-06-09 14:07 | XCELERA REPORT ---
[address] [address] Transthoracic Echocardiogram Report Name: VIKRAM BARRIENTOS Age: 80 yrs Gender: Male : 1935 Patient Status: Inpatient Patient Location: ICU\S\601\S\A Study Date: 06/09/2016 08:49 AM Height: 71 in Weight: 195 lb BSA: 2.1 m2 Procedure: A complete two-dimensional transthoracic echocardiogram was performed (2D, M-mode, spectral and color flow Doppler). The study was technically difficult with many images being suboptimal in quality. Reason For Study: shock/chest pain Ordering Physician: ZULLY SIERRA Performed By: Marco Antonio Peñaloza Interpretation Summary The study was technically difficult with many images being suboptimal in quality. The Ejection Fraction estimate is 50-55% Left ventricular systolic function is borderline reduced. Doppler measurements suggest pseudonormalized left ventricular relaxation, which is associated with grade II/IV or mild to moderate diastolic dysfunction The right ventricle is mild to moderately dilated. The right ventricular systolic function is mildly reduced. The right ventricle appears to be hypertrophied The left atrial size is normal. The right atrium is mild to moderately dilated. There is no mitral valve stenosis. There is a mild to moderate amount of mitral regurgitation There is no aortic valve stenosis There is a trace amount of aortic regurgitation There is a mild amount of tricuspid regurgitation There is moderate to severe pulmonary hypertension by echo Best estimated right ventricular systolic pressure is elevated at 50- 60mmHg. The inferior vena cava appeared dilated and decreased < 50% with respiration (RAP 15-20 mmHg) There is no pericardial effusion. MMode/2D Measurements \T\ Calculations RVDd: 3.4 cm LVIDd: 4.9 cm FS: 25.8 % Ao root diam: 3.4 cm IVSd: 0.77 cm LVIDs: 3.6 cm EDV(Teich): 110.9 ml LVPWd: 0.77 cm ESV(Teich): 54.7 ml Ao root area: 9.0 cm2 EF(Teich): 50.7 % LA dimension: 3.5 cm Doppler Measurements \T\ Calculations MV E max tere: MV P1/2t max tere: Ao V2 max: LV V1 max P.1 cm/sec 105.6 cm/sec 161.3 cm/sec 2.4 mmHg MV A max tere: MV P1/2t: 45.0 msec Ao max PG: LV V1 max: 88.8 cm/sec 10.4 mmHg 77.0 cm/sec MV E/A: 1.2 MVA(P1/2t): 4.9 cm2 MV dec slope: 687.9 cm/sec2 MV dec time: 0.16 sec PA V2 max: TR max tere: RAP systole: 65.6 cm/sec 327.4 cm/sec 10.0 mmHg PA max P.7 mmHgTR max P.9 mmHg RVSP(TR): 52.9 mmHg Left Ventricle The left ventricle is grossly normal size. There is normal left ventricular wall thickness. Left ventricular systolic function is borderline reduced. The Ejection Fraction estimate is 50-55%. Doppler measurements suggest pseudonormalized left ventricular relaxation, which is associated with grade II/IV or mild to moderate diastolic dysfunction. Not all wall segments were well visualized. Right Ventricle The right ventricle is mild to moderately dilated. The right ventricle appears to be hypertrophied. The right ventricular systolic function is mildly reduced. Atria The right atrium is mild to moderately dilated. The left atrial size is normal. Interarterial septum not well visualized and not well dopplered. Cannot comment on ASD/PFO presence. Mitral Valve The mitral valve is grossly normal. There is no mitral valve stenosis. There is a mild to moderate amount of mitral regurgitation. Aortic Valve The aortic valve is not well visualized secondary to technical limitations. There is no aortic valve stenosis. There is a trace amount of aortic regurgitation. Tricuspid Valve The tricuspid valve is not well visualized secondary to technical limitations. There is no tricuspid stenosis. There is a mild amount of tricuspid regurgitation. There is moderate to severe pulmonary hypertension by echo. Best estimated right ventricular systolic pressure is elevated at 50-60mmHg. Pulmonic Valve The pulmonic valve is not well visualized. Great Vessels The aortic root is not well visualized. The inferior vena cava appeared dilated and decreased < 50% with respiration (RAP 15-20 mmHg). Effusions There is no pericardial effusion. : ZULLY SIERRA > Luis Peña
[2016-06-09] MEDS ORDERED: FUROSEMIDE INJ/PF 20 MG/2 ML SDV IV ONE (14:30)
[2016-06-09] MEDS: CEFTRIAXONE 1 GM/D5W RTU 1 GM/50 ML RTUPB IV SCH (14:39)
[2016-06-09] MEDS: ACETAMINOPHEN 325 MG TABLET PO PRN (15:35)
[2016-06-09] MEDS: DOCUSATE SODIUM 100 MG CAPSULE PO SCH (17:38)
[2016-06-09] MEDS: LACTOBACILLUS ACIDOPHILUS 250 MG TAB PO SCH (17:53)
[2016-06-09] MEDS: CLONAZEPAM 1 MG TABLET PO PRN (21:22)
[2016-06-10] MEDS: IPRATROPIUM/ALBUTEROL 0.5-2.5 MG/3 ML AMPUL NEB SCH ×4 (00:15→23:41)
[2016-06-10] MEDS: HYDROCORTISONE SOD SUCCINATE INJ/PF 100 MG/2 ML SDV IV SCH (05:16)
[2016-06-10 05:31] LABS: ABSOLUTE LYMPHOCYTES (AUTO) 0.5 10^3/uL (0.5-4.7); ABSOLUTE MONOCYTES (AUTO) 0.3 10^3/uL (0.1-1.4); ABSOLUTE NEUT (AUTO) 6.5 10^3/uL (1.7-8.2); BASOPHILS % (AUTO) 0.1 % (0-2); HEMATOCRIT 32.1 % (37.9-51.0); HEMOGLOBIN 10.6 g/dL (13.5-17.0); HGB HCT DIFFERENCE -0.3; LYMPHOCYTES % (AUTO) 7.2 % (13-45); MEAN CORPUSCULAR HEMOGLOBIN 29.2 pg (27.0-33.4); MEAN CORPUSCULAR VOLUME 89 fl (80-97); MONOCYTES % (AUTO) 3.8 % (3-13); RED BLOOD COUNT 3.62 10^6/uL (4.35-5.55); RED CELL DISTRIBUTION WIDTH 14.3 % (11.5-14.0); SEGMENTED NEUTROPHILS % (AUTO) 88.9 % (42-78); WHITE BLOOD COUNT 7.3 10^3/uL (4.0-10.5)
[2016-06-10 05:45] LABS: ANION GAP 8 (5-19); BLOOD UREA NITROGEN 19 mg/dL (7-20); CALCIUM 8.5 mg/dL (8.4-10.2); CARBON DIOXIDE 29 mmol/L (22-30); CHLORIDE 107 mmol/L (98-107); CREATININE RESULT 0.72 mg/dL (0.52-1.25); GLUCOSE 170 mg/dL (75-110); POTASSIUM 3.3 mmol/L (3.6-5.0); SODIUM 144.2 mmol/L (137-145)
[2016-06-10] MEDS ORDERED: BENZONATATE 100 MG CAPSULE PO ONE (10:00)
[2016-06-10] MEDS ORDERED: POTASSIUM CHLORIDE 10 MEQ TABLET.SA PO ONE (10:00)
[2016-06-10 10:47] LABS: ARTERIAL BLOOD BASE EXCESS 0.7 mmol/L; ARTERIAL BLOOD O2 SATURATION 92.8 % (94-98)
[2016-06-10] MEDS: GUAIFENESIN 600 MG TABLET.SA PO SCH ×3 (10:56→17:05)
[2016-06-10] MEDS: ASPIRIN 81 MG TABLET, CHEWABLE PO SCH (10:56)
[2016-06-10] MEDS: DOCUSATE SODIUM 100 MG CAPSULE PO SCH ×2 (10:56→17:05)
[2016-06-10] MEDS: LACTOBACILLUS ACIDOPHILUS 250 MG TAB PO SCH ×2 (10:57→17:06)
[2016-06-10] MEDS: FUROSEMIDE INJ/PF 20 MG/2 ML SDV IV SCH ×2 (10:57→21:50)
[2016-06-10] MEDS: FAMOTIDINE INJ/PF 20 MG/2 ML SDV IV SCH ×2 (10:58→21:41)
[2016-06-10] MEDS: ENOXAPARIN SODIUM INJ 40 MG/0.4 ML DISP.SYRIN SUBCUT SCH (10:58)
[2016-06-10] MEDS: OXYCODONE-ACETAMINOPHEN 5-325 MG TABLET PO SCH ×3 (13:44→23:33)
--- NOTE | 2016-06-10 13:44 | PDOC PROGRESS REPORT ---
Subjective Progress Note for:: 06/10/16 Subjective:: Patient is still short of breath but his condition has improved somewhat He is now on a nasal cannula of BiPAP and comfortable He is alert and awake No fever no chills no chest pain; Physical Exam Vital Signs: Temp Pulse Resp BP Pulse Ox 98.9 F 91 27 H 135/74 H 92 06/10/16 12:00 06/10/16 12:00 06/10/16 12:00 06/10/16 12:00 06/10/16 12:00 Pulse Oximeter Continuous Start: 06/08/16 09: 30 Freq: RTQ4 Status: Active Document 06/10/16 11:50 CBR (Rec: 06/10/16 12:56 CBR [id number]) Pulse Oximetry Assessment Oxygen Saturation (92-100) 94 Oxygen Delivery Method Room Air Fraction of Inspired Oxygen (FIO2) 21 Equipment Usage Equipment Standby Continuous SpO2 Machine # ICU Intake & Output 06/09/16 06/10/16 06/11/16 00:59 00:59 00:59 Intake Total 792 592 Output Total 450 1750 2379 Balance -450 -958 -7583 Weight 88.451 kg 91.8 kg 91 kg General appearance: PRESENT: no acute distress, thin Head exam: PRESENT: atraumatic, normocephalic Eye exam: PRESENT: conjunctiva pink, EOMI, PERRLA. ABSENT: scleral icterus Respiratory exam: PRESENT: rales - Two third up bilaterally, tachypnea, wheezes. ABSENT: accessory muscle use, chest wall tenderness Cardiovascular exam: PRESENT: RRR. ABSENT: diastolic murmur, rubs, systolic murmur GI/Abdominal exam: PRESENT: normal bowel sounds, soft. ABSENT: distended, guarding, mass, organolmegaly, rebound, tenderness Extremities exam: PRESENT: full ROM. ABSENT: calf tenderness, clubbing, pedal edema Neurological exam: PRESENT: alert, awake, oriented to person, oriented to place , oriented to time, oriented to situation, CN II-XII grossly intact. ABSENT: motor sensory deficit Psychiatric exam: PRESENT: appropriate affect, normal mood. ABSENT: homicidal ideation, suicidal ideation Skin exam: PRESENT: dry, intact, warm. ABSENT: cyanosis, rash Results Laboratory Results: 06/10/16 05:15 06/10/16 05:15 06/10/16 06/10/16 06/10/16 05:15 05:15 10:28 WBC 7.3 RBC 3.62 L Hgb 10.6 L Hct 32.1 L MCV 89 MCH 29.2 MCHC 33.0 RDW 14.3 H Plt Count 121 L Seg Neutrophils % 88.9 H Lymphocytes % 7.2 L Monocytes % 3.8 Eosinophils % 0.0 Basophils % 0.1 Absolute Neutrophils 6.5 Absolute Lymphocytes 0.5 Absolute Monocytes 0.3 Absolute Eosinophils 0.0 Absolute Basophils 0.0 Carbonic Acid 1.20 HCO3/H2CO3 Ratio 21:1 ABG pH 7.42 ABG pCO2 39.9 ABG pO2 63.9 L ABG HCO3 25.2 ABG O2 Saturation 92.8 L ABG Base Excess 0.7 FiO2 ROOM AIR Sodium 144.2 Potassium 3.3 L Chloride 107 Carbon Dioxide 29 Anion Gap 8 BUN 19 Creatinine 0.72 Est GFR ( Amer) > 60 Est GFR (Non-Af Amer) > 60 Glucose 170 H Calcium 8.5 06/08/16 06/08/16 06/09/16 14:00 18:32 06:28 Troponin I 0.103 0.101 NT-Pro-B Natriuret Pep 1330 H 06/10/16 05:15 Troponin I NT-Pro-B Natriuret Pep 3740 H Impressions: Chest X-Ray 06/10/16 06:00 IMPRESSION: Partial clearing of the bibasilar airspace disease compared to previous studies. Persistent mild increased interstitial markings at both bases from interstitial edema, and pulmonary vascular prominence. This is improved compared to previous studies. Assessment & Plan - Diagnosis (1) Acute respiratory failure with hypoxia Is this a current diagnosis for this admission?: YesPlan: Is improving respiratory failure secondary to COPD exacerbation , pneumonia and fluid overload We will continue BiPAP when necessary Continue present management (2) Anemia Qualifiers: Anemia type: unspecified type Qualified Code(s): D64.9 - Anemia, unspecified Is this a current diagnosis for this admission?: YesPlan: Likely anemia of chronic disease (3) COPD (chronic obstructive pulmonary disease) Qualifiers: COPD type: COPD with acute exacerbation Qualified Code(s): J44.1 - Chronic obstructive pulmonary disease with (acute) exacerbation Is this a current diagnosis for this admission?: YesPlan: Continue steroids nebs antibiotics (4) Lung nodule, solitary Is this a current diagnosis for this admission?: Yes (5) Pneumonia Qualifiers: Pneumonia type: due to unspecified organism Laterality: bilateral Lung location: lower lobe of lung Qualified Code(s): J18.9 - Pneumonia, unspecified organism Is this a current diagnosis for this admission?: YesPlan: By basilar airspace disease Continue ceftriaxone and Zithromax (6) Sepsis Qualifiers: Sepsis type: sepsis due to unspecified organism Qualified Code(s): A41.9 - Sepsis, unspecified organism Is this a current diagnosis for this admission?: YesPlan: Secondary to pneumonia resolving (7) Acute on chronic diastolic CHF (congestive heart failure) Is this a current diagnosis for this admission?: YesPlan: Secondary to fluid overload Continue Lasix IV Reevaluate patient's needs in a.m. - Time Time Spent with patient: Patient may be downgraded to IMCU in a.m. if his condition is stable Time Spent with patient: 35 or more minutes
[2016-06-10] MEDS: BENZONATATE 100 MG CAPSULE PO SCH ×2 (13:45→21:40)
[2016-06-10] MEDS: METHYLPREDNISOLONE INJ 125 MG/2 ML SDV IV SCH ×2 (13:45→21:40)
[2016-06-10] MEDS ORDERED: (PENDING PHARMACY ID) (Clonazepam [Klonopin] 0.5 MG) PO SCH (14:00)
[2016-06-10] MEDS: AZITHROMYCIN 250 MG TABLET PO SCH (17:05)
[2016-06-10] MEDS: CEFTRIAXONE 1 GM/D5W RTU 1 GM/50 ML RTUPB IV SCH (17:06)
[2016-06-10] MEDS: POTASSIUM CHLORIDE 10 MEQ TABLET.SA PO SCH (21:40)
[2016-06-11 05:23] LABS: ABSOLUTE LYMPHOCYTES (AUTO) 0.5 10^3/uL (0.5-4.7); ABSOLUTE MONOCYTES (AUTO) 0.2 10^3/uL (0.1-1.4); ABSOLUTE NEUT (AUTO) 6.2 10^3/uL (1.7-8.2); BASOPHILS % (AUTO) 0.2 % (0-2); HEMATOCRIT 32.2 % (37.9-51.0); HEMOGLOBIN 10.8 g/dL (13.5-17.0); HGB HCT DIFFERENCE 0.2; LYMPHOCYTES % (AUTO) 7.4 % (13-45); MEAN CORPUSCULAR HEMOGLOBIN 29.2 pg (27.0-33.4); MEAN CORPUSCULAR HGB CONC 33.4 g/dL (32.0-36.0); MEAN CORPUSCULAR VOLUME 87 fl (80-97); MONOCYTES % (AUTO) 2.3 % (3-13); RED BLOOD COUNT 3.69 10^6/uL (4.35-5.55); RED CELL DISTRIBUTION WIDTH 14.4 % (11.5-14.0); SEGMENTED NEUTROPHILS % (AUTO) 90.1 % (42-78); WHITE BLOOD COUNT 6.9 10^3/uL (4.0-10.5)
[2016-06-11] MEDS: OXYCODONE-ACETAMINOPHEN 5-325 MG TABLET PO SCH ×3 (05:23→18:05)
[2016-06-11] MEDS: METHYLPREDNISOLONE INJ 125 MG/2 ML SDV IV SCH ×3 (05:23→21:48)
[2016-06-11] MEDS: BENZONATATE 100 MG CAPSULE PO SCH ×3 (05:23→21:49)
[2016-06-11 05:49] LABS: ALANINE AMINOTRANSFERASE 36 U/L (21-72); ALBUMIN 2.9 g/dL (3.5-5.0); ALKALINE PHOSPHATASE 108 U/L (38-126); ANION GAP 7 (5-19); ASPARTATE AMINO TRANSFERASE 30 U/L (17-59); BILIRUBIN,TOTAL 0.3 mg/dL (0.2-1.3); BLOOD UREA NITROGEN 25 mg/dL (7-20); CALCIUM 8.4 mg/dL (8.4-10.2); CARBON DIOXIDE 35 mmol/L (22-30); CHLORIDE 103 mmol/L (98-107); CREATININE RESULT 0.76 mg/dL (0.52-1.25); GLUCOSE 157 mg/dL (75-110); POTASSIUM 3.7 mmol/L (3.6-5.0); SODIUM 144.6 mmol/L (137-145); TOTAL PROTEIN 5.2 g/dL (6.3-8.2)
[2016-06-11] MEDS: IPRATROPIUM/ALBUTEROL 0.5-2.5 MG/3 ML AMPUL NEB SCH ×2 (08:24→16:34)
[2016-06-11] MEDS: ENOXAPARIN SODIUM INJ 40 MG/0.4 ML DISP.SYRIN SUBCUT SCH (08:59)
[2016-06-11] MEDS: DOCUSATE SODIUM 100 MG CAPSULE PO SCH ×2 (09:01→18:05)
[2016-06-11] MEDS: LACTOBACILLUS ACIDOPHILUS 250 MG TAB PO SCH ×2 (09:02→18:04)
[2016-06-11] MEDS: POTASSIUM CHLORIDE 10 MEQ TABLET.SA PO SCH ×2 (09:02→21:49)
[2016-06-11] MEDS: FAMOTIDINE INJ/PF 20 MG/2 ML SDV IV SCH ×2 (09:03→21:48)
[2016-06-11] MEDS: GUAIFENESIN 600 MG TABLET.SA PO SCH ×3 (09:03→18:05)
[2016-06-11] MEDS: ASPIRIN 81 MG TABLET, CHEWABLE PO SCH (09:10)
[2016-06-11] MEDS: FUROSEMIDE INJ/PF 20 MG/2 ML SDV IV SCH ×2 (09:12→21:48)
[2016-06-11] MEDS: CEFTRIAXONE 1 GM/D5W RTU 1 GM/50 ML RTUPB IV SCH (15:59)
--- NOTE | 2016-06-11 16:21 | PDOC PROGRESS REPORT ---
Subjective Progress Note for:: 06/11/16 Subjective:: feels a lot better comfortable cough still hacking and persistent but improved off Oxygen most of the day Physical Exam Vital Signs: Temp Pulse Resp BP Pulse Ox 97.4 F 82 16 140/82 H 95 06/11/16 12:04 06/11/16 12:04 06/11/16 12:04 06/11/16 12:04 06/11/16 12:04 Pulse Oximeter Continuous Start: 06/08/16 09: 30 Freq: RTQ4 Status: Complete Document 06/10/16 11:50 CBR (Rec: 06/10/16 12:56 CBR [id number]) Pulse Oximetry Assessment Oxygen Saturation (92-100) 94 Oxygen Delivery Method Room Air Fraction of Inspired Oxygen (FIO2) 21 Equipment Usage Equipment Standby Continuous SpO2 Machine # ICU Intake & Output 06/10/16 06/11/16 06/12/16 00:59 00:59 00:59 Intake Total 792 849 673 Output Total 4181 0835 600 Balance -186 -9756 73 Weight 91.8 kg 91 kg 88.8 kg General appearance: PRESENT: no acute distress, well-developed, well-nourished Head exam: PRESENT: atraumatic, normocephalic Eye exam: PRESENT: conjunctiva pink, EOMI, PERRLA. ABSENT: scleral icterus Ear exam: PRESENT: normal external ear exam Mouth exam: PRESENT: moist, tongue midline Neck exam: ABSENT: carotid bruit, JVD, lymphadenopathy, thyromegaly Respiratory exam: PRESENT: decreased breath sounds, wheezes. ABSENT: rales, rhonchi Cardiovascular exam: PRESENT: RRR. ABSENT: diastolic murmur, rubs, systolic murmur Pulses: PRESENT: normal dorsalis pedis pul Vascular exam: PRESENT: normal capillary refill GI/Abdominal exam: PRESENT: normal bowel sounds, soft. ABSENT: distended, guarding, mass, organolmegaly, rebound, tenderness Rectal exam: PRESENT: deferred Extremities exam: PRESENT: full ROM. ABSENT: calf tenderness, clubbing, pedal edema Neurological exam: PRESENT: alert, awake, oriented to person, oriented to place , oriented to time, oriented to situation, CN II-XII grossly intact. ABSENT: motor sensory deficit Psychiatric exam: PRESENT: appropriate affect, normal mood. ABSENT: homicidal ideation, suicidal ideation Skin exam: PRESENT: dry, intact, warm. ABSENT: cyanosis, rash Results Laboratory Results: 06/11/16 04:00 06/11/16 04:00 06/11/16 06/11/16 04:00 04:00 WBC 6.9 RBC 3.69 L Hgb 10.8 L Hct 32.2 L MCV 87 MCH 29.2 MCHC 33.4 RDW 14.4 H Plt Count 158 Seg Neutrophils % 90.1 H Lymphocytes % 7.4 L Monocytes % 2.3 L Eosinophils % 0.0 Basophils % 0.2 Absolute Neutrophils 6.2 Absolute Lymphocytes 0.5 Absolute Monocytes 0.2 Absolute Eosinophils 0.0 Absolute Basophils 0.0 Sodium 144.6 Potassium 3.7 Chloride 103 Carbon Dioxide 35 H Anion Gap 7 BUN 25 H Creatinine 0.76 Est GFR ( Amer) > 60 Est GFR (Non-Af Amer) > 60 Glucose 157 H Calcium 8.4 Total Bilirubin 0.3 AST 30 ALT 36 Alkaline Phosphatase 108 Total Protein 5.2 L Albumin 2.9 L 06/10/16 16:25 Sputum Gram Stain - Final 06/10/16 16:25 Sputum Sputum Culture - Final C.albicans/C.dubliniensis Greatly Reduced Normal Amelia 06/08/16 06/08/16 06/09/16 14:00 18:32 06:28 Troponin I 0.103 0.101 NT-Pro-B Natriuret Pep 1330 H 06/10/16 05:15 Troponin I NT-Pro-B Natriuret Pep 3740 H Impressions: Chest X-Ray 06/10/16 06:00 IMPRESSION: Partial clearing of the bibasilar airspace disease compared to previous studies. Persistent mild increased interstitial markings at both bases from interstitial edema, and pulmonary vascular prominence. This is improved compared to previous studies. Chest CT 06/11/16 10:58 IMPRESSION: 1. Pulmonary findings include bilateral small effusions with basilar airspace disease and interstitial change. Findings may be related to congestive failure, pneumonia or a combination of these processes. 2. COPD. 3. 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 Status: Image reviewed by me Assessment & Plan - Diagnosis (1) Acute respiratory failure with hypoxia Is this a current diagnosis for this admission?: Yes (2) Anemia Qualifiers: Anemia type: unspecified type Qualified Code(s): D64.9 - Anemia, unspecified Is this a current diagnosis for this admission?: Yes (3) COPD (chronic obstructive pulmonary disease) Qualifiers: COPD type: COPD with acute exacerbation Qualified Code(s): J44.1 - Chronic obstructive pulmonary disease with (acute) exacerbation Is this a current diagnosis for this admission?: Yes (4) Lung nodule, solitary Is this a current diagnosis for this admission?: Yes (5) Pneumonia Qualifiers: Pneumonia type: due to unspecified organism Laterality: bilateral Lung location: lower lobe of lung Qualified Code(s): J18.9 - Pneumonia, unspecified organism Is this a current diagnosis for this admission?: Yes (6) Sepsis Qualifiers: Sepsis type: sepsis due to unspecified organism Qualified Code(s): A41.9 - Sepsis, unspecified organism Is this a current diagnosis for this admission?: Yes (7) Acute on chronic diastolic CHF (congestive heart failure) Is this a current diagnosis for this admission?: Yes (8) Hamartoma Is this a current diagnosis for this admission?: YesPlan: 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
[2016-06-11] MEDS: AZITHROMYCIN 250 MG TABLET PO SCH (18:04)
[2016-06-11] MEDS ORDERED: OXYCODONE-ACETAMINOPHEN 5-325 MG TABLET PO PRN (19:19)
[2016-06-11] MEDS: CLONAZEPAM 1 MG TABLET PO PRN (21:49)
[2016-06-12] MEDS: IPRATROPIUM/ALBUTEROL 0.5-2.5 MG/3 ML AMPUL NEB SCH ×3 (00:55→15:39)
[2016-06-12] MEDS: BENZONATATE 100 MG CAPSULE PO SCH ×2 (06:04→14:21)
[2016-06-12] MEDS: METHYLPREDNISOLONE INJ 125 MG/2 ML SDV IV SCH (06:05)
[2016-06-12] MEDS: ENOXAPARIN SODIUM INJ 40 MG/0.4 ML DISP.SYRIN SUBCUT SCH (09:58)
[2016-06-12] MEDS: GUAIFENESIN 600 MG TABLET.SA PO SCH ×2 (09:59→14:21)
[2016-06-12] MEDS: FAMOTIDINE INJ/PF 20 MG/2 ML SDV IV SCH (09:59)
[2016-06-12] MEDS: FUROSEMIDE INJ/PF 20 MG/2 ML SDV IV SCH (10:00)
[2016-06-12] MEDS ORDERED: CEFPODOXIME 200 MG TABLET PO SCH (10:00)
[2016-06-12] MEDS ORDERED: METHYLPREDNISOLONE INJ 125 MG/2 ML SDV IV SCH (10:00)
[2016-06-12] MEDS ORDERED: DOXYCYCLINE HYCLATE 100 MG TABLET PO SCH (10:00)
[2016-06-12] MEDS: DOCUSATE SODIUM 100 MG CAPSULE PO SCH (10:00)
[2016-06-12] MEDS ORDERED: FLUCONAZOLE 100 MG TABLET PO SCH (10:00)
[2016-06-12] MEDS: LACTOBACILLUS ACIDOPHILUS 250 MG TAB PO SCH (10:10)
[2016-06-12] MEDS: POTASSIUM CHLORIDE 10 MEQ TABLET.SA PO SCH (10:11)
[2016-06-12] MEDS: ASPIRIN 81 MG TABLET, CHEWABLE PO SCH (10:11)
[2016-06-12 16:18] VITALS: BP 141/76
--- NOTE | 2016-06-12 17:21 | PDOC DISCHARGE SUMMARY ---
General - Admit/Disc Date/PCP Admission Date/Primary Care Provider: 06/08/16 09:29 CASEY AGUILAR MD Discharge Date: 06/12/16 - Discharge Diagnosis (1) Acute respiratory failure with hypoxia Is this a current diagnosis for this admission?: YesSummary: Patient was admitted with a diagnosis of acute hypoxemic respiratory failure respiratory failure was secondary to pneumonia; COPD exacerbation and fluid overload Patient needed to be on BiPAP support initially His condition improved dramatically during his stay ; patient is discharged on nasal O2 at 2 L/mn His needs for supplemental oxygen should be reevaluated in a month or 2 by his primary care physician (2) Anemia Is this a current diagnosis for this admission?: YesSummary: Chronic anemia likely anemia of chronic disease; patient did not need transfusion (3) COPD (chronic obstructive pulmonary disease) Is this a current diagnosis for this admission?: YesSummary: Patient was treated with steroids and nebs He was discharged on prednisone by mouth to continue his prior medications (4) Lung nodule, solitary Is this a current diagnosis for this admission?: YesSummary: Patient had an abnormal chest chest x-ray ; CT of the chest showed a 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 When it was discussed as well as the patient just stated have known about this benign tumor for 10 years We did give him a copy of the CAT scan and suggested he follows with his primary care physician (5) Pneumonia Is this a current diagnosis for this admission?: YesSummary: Cultures just showed Liana albicans Patient was discharged on doxycycline , vantin and fluconazole (6) Sepsis Is this a current diagnosis for this admission?: YesSummary: Was present at time of admission And resolved Sepsis was secondary to pneumonia (7) Acute on chronic diastolic CHF (congestive heart failure) Is this a current diagnosis for this admission?: YesSummary: Echocardiogram showed a normal EF of 50-55% and diastolic dysfunction Patient responded to IV Lasix we did discharge him on 20 mg daily as the last chest x-ray still showed some small pleural effusions (8) Hamartoma Is this a current diagnosis for this admission?: Yes - Additional Information Resuscitation Status: Full Code Discharge Diet: As Tolerated Discharge Activity: Activity As Tolerated, Balance Activity w/Rest, Energy Conservation, Slowly Increase Activity, Weigh Daily Home Medications: Atorvastatin Calcium [Lipitor 40 mg Tablet] 40 mg PO QHS 06/08/16 Budesonide [Uceris] 9 mg PO DAILY 06/08/16 Clonazepam [Klonopin] 0.5 mg PO Q8 06/08/16 Diphenoxylate HCl/Atropine [Diphenoxylate-Atrop 2.5-0.025] 1 each PO QIDP PRN Ergocalciferol (Vitamin D2) [Vitamin D2] 50,000 unit PO [id number] 06/08/16 Oxycodone HCl/Acetaminophen [Oxycodone-Acetaminophen 5-325] 1 each PO Q6 Benzonatate [Tessalon Perles 100 mg Capsule] 100 mg PO Q8HP PRN #30 capsule Cefpodoxime Proxetil [Vantin 200 mg Tablet] 1 tab PO Q12 #20 tab 06/12/16 Doxycycline Hyclate [Vibramycin 100 mg Tablet] 100 mg PO Q12 #20 tablet Fluconazole [Diflucan 100 mg Tablet] 200 mg PO DAILY #10 tablet 06/12/16 Furosemide [Lasix] 20 mg PO DAILY #30 tablet 06/12/16 Guaifenesin [Mucinex Sr 600 mg Tablet.sa] 600 mg PO TID #60 tablet.sa 06/12/16 Ipratropium/Albuterol Sulfate [Duoneb 3 ml Ampul] 3 ml NEB RTQ8 #30 vial.neb Prednisone 20 mg PO ASDIR #50 tablet 06/12/16 History of Present Illness History of Present Illness: VIKRAM BARRIENTOS is a 80 year old male who is new to the area having moved from [place] and yet to establish with primary care provider, carries a history of COPD and lung nodule, presents to the emergency department from home with a 5 day history of progressive shortness of breath. He states it started on Thursday with cough resulting in left lower and abdominal wall chest pain described as sharp, stabbing, intermittent and worsened with paroxysms of cough, radiating into the shoulders and down his right arm exacerbating his cervical spine disease, without alleviating factors, and no associated symptoms of palpitations, orthopnea, PND , syncope or presyncope. He also complains of generalized weakness, generalized myalgias, generalized arthralgias, fevers at home with associated diaphoresis and night sweats, chills/rigors. He denies nausea, vomiting, diarrhea, sick contacts, recent travel, exposure to TB, recent hospitalization. He reports a long history of smoking at least a pack per day for most of his life and a diagnosis of COPD with home nebulizers but he is not O2 or steroid dependent yet. 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 He is unsure of a pulmonary fibrosis diagnosis. He also carries a history of a 2-1/2 cm left upper lobe lung nodule for the last 20 years status monitored with annual imaging and has not changed during that time. He carries a diagnosis of colon cancer status post excision with end-to-end anastomosis, no ostomy, status post chemotherapy and radiation therapy, last colonoscopy in 2007 and he was declared cancer free. Evaluation in the emergency department shows a bibasilar pneumonia, leukocytosis , temperature documented at 102 with a room air sat of 70% now on BiPAP therapy and we were asked to admit the patient for further evaluation and management. He states he is up-to-date with his pneumonia and influenza vaccine, and he screened negative for influenza in the ER. Hospital Course Hospital Course: See above Physical Exam Vital Signs: Temp Pulse Resp BP Pulse Ox 97.8 F 79 16 141/76 H 98 06/12/16 15:59 06/12/16 15:59 06/12/16 15:59 06/12/16 15:59 06/12/16 15:59 Pulse Oximeter Continuous Start: 06/08/16 09: 30 Freq: RTQ4 Status: Complete Document 06/10/16 11:50 CBR (Rec: 06/10/16 12:56 CBR [id number]) Pulse Oximetry Assessment Oxygen Saturation (92-100) 94 Oxygen Delivery Method Room Air Fraction of Inspired Oxygen (FIO2) 21 Equipment Usage Equipment Standby Continuous SpO2 Machine # ICU Intake & Output 06/11/16 06/12/16 06/13/16 00:59 00:59 00:59 Intake Total 849 1245 928 Output Total 9654 507 1700 Balance -2626 295 -772 Weight 91 kg 88.8 kg 88.8 kg General appearance: PRESENT: no acute distress Head exam: PRESENT: atraumatic, normocephalic Eye exam: PRESENT: conjunctiva pink, EOMI, PERRLA. ABSENT: scleral icterus Ear exam: PRESENT: normal external ear exam Neck exam: ABSENT: carotid bruit, JVD, lymphadenopathy, thyromegaly Respiratory exam: PRESENT: decreased breath sounds. ABSENT: accessory muscle use, chest wall tenderness, rhonchi, tachypnea, wheezes Cardiovascular exam: PRESENT: RRR. ABSENT: diastolic murmur, rubs, systolic murmur Pulses: PRESENT: normal dorsalis pedis pul GI/Abdominal exam: PRESENT: normal bowel sounds, soft. ABSENT: distended, guarding, mass, organolmegaly, rebound, tenderness Musculoskeletal exam: ABSENT: ambulatory, deformity, dislocation, full ROM, normal inspection, tenderness, other Neurological exam: PRESENT: alert, awake, oriented to person, oriented to place , oriented to time, oriented to situation, CN II-XII grossly intact. ABSENT: motor sensory deficit Skin exam: PRESENT: dry, intact, warm. ABSENT: cyanosis, rash Results Laboratory Results: 06/11/16 04:00 06/11/16 04:00 06/10/16 16:25 Sputum Gram Stain - Final 06/10/16 16:25 Sputum Sputum Culture - Final C.albicans/C.dubliniensis Greatly Reduced Normal Amelia 06/08/16 06/08/16 06/09/16 14:00 18:32 06:28 Troponin I 0.103 0.101 NT-Pro-B Natriuret Pep 1330 H 06/10/16 05:15 Troponin I NT-Pro-B Natriuret Pep 3740 H Impressions: Chest X-Ray 06/10/16 06:00 IMPRESSION: Partial clearing of the bibasilar airspace disease compared to previous studies. Persistent mild increased interstitial markings at both bases from interstitial edema, and pulmonary vascular prominence. This is improved compared to previous studies. Chest CT 06/11/16 10:58 IMPRESSION: 1. Pulmonary findings include bilateral small effusions with basilar airspace disease and interstitial change. Findings may be related to congestive failure, pneumonia or a combination of these processes. 2. COPD. 3. 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 Plan Discharge Plan: Follow-up with his primary care physician within a week time O2 supplementation at 2 L/m Home health and home PT Time Spent: Greater than 30 Minutes
== END 2016-06-12 17:20 | disposition home health service (06) | DRG 871 ==
LOC: ER 06:53 → EH 09:29 → UNDOADMIN 09:52 → ICU 06-09 07:46 → 3N 06-10 16:26
PROVIDERS: ADMIT Internal Medicine; ATTEND Internal Medicine
PROC: 02HV33Z Insertion of Infusion Device into Superior Vena Cava, Percutaneous Approach (ICD-10-PCS; principal; 2016-06-08)
DX: A41.9 Sepsis, unspecified organism (principal); J18.9 Pneumonia, unspecified organism; J96.01 Acute respiratory failure with hypoxia; I50.33 Acute on chronic diastolic (congestive) heart failure; J44.1 Chronic obstructive pulmonary disease with (acute) exacerbation; Q85.9 Phakomatosis, unspecified; R91.1 Solitary pulmonary nodule; D63.8 Anemia in other chronic diseases classified elsewhere; R07.9 Chest pain, unspecified; F17.210 Nicotine dependence, cigarettes, uncomplicated; Z85.038 Personal history of other malignant neoplasm of large intestine
CPT/HCPCS: 36415; 36600; 71010; 71250; 80048; 80053; 80061; 81001; 82803; 83605; 83690; 83735; 83880; 84484; 85025; 85610; 85730; 87040; 87070; 87086; 87205; 87804; 93005; 93010; 93306; 94640; 94660; 96361; 96365; 99291; C1751; G8978-GP; G8979-GP; J0456; J0696; J1650; J1720; J1940; J1956; J2930; J3490; J7030; J7060; J7120; J7620; S0028